=== PATIENT | male | born 1955 | race Hispanic/Latino ===

== ENCOUNTER → 2025-01-26 | Day surgery (SDC) | payer MEDICARE ==
[2025-01-19 11:51] LABS: BASOPHILS % 0.5 % (0.0-1.0); EOSINOPHILS % 3.8 % (0.0-6.0); LYMPHOCYTES % 24.9 % (18.0-39.1); MONOCYTES % 9.9 % (4.4-11.3); NEUTROPHILS % 60.7 % (38.7-80.0); RED CELL DISTRIBUTION WIDTH 13.9 % (11.7-14.4)
[2025-01-19 12:22] LABS: EST GLOMERULAR FILTRATION RATE 93.0 ML/MIN (>=60)
[~2025-01-26] MED LIST: ACETAMINOPHEN 1000 MG/100 ML 100 ML IV ONE; ACETAMINOPHEN 1000 MG/100 ML IV PRN; AMLODIPINE BESY10 MG PO; ASPIRIN 325 MG TAB PO SCH; ATORVASTATIN CA20 MG PO; CELECOXIB 100 MG CAP PO SCH; DIPHENHYDRAMINE HCL INJ 50 MG/ML VIAL IV PRN; DOCUSATE SODIUM 100 MG CAP PO PRN; FENTANYL CITRATE/PF 100MCG/2 ML INJ ONE; HYDRALAZINE HCL50 MG PO; HYDROCHLOROTHIA25 MG PO; HYDROCODONE/APAP 5MG-325MG TAB PO PRN; LEVOTHYROXINE112 MCG PO; LEXAPRO10 MG PO; LIDOCAINE HCL 2% LOCAL INJ 5 ML SDV VIAL INJ ONE; METFORMIN HCL500 MG PO; METOCLOPRAMIDE HCL 10 MG/2ML VIAL ONE; ONDANSETRON HCL INJ 2MG/ML 2ML 2 MG/ML VIAL IV PRN; ONDANSETRON HCL INJ 2MG/ML 2ML 2 MG/ML VIAL ONE; PROPOFOL IV EMULSION 10 MG/ML 20 ML VIAL ONE; ROPIVACAINE 246.25 MG, EPINEPHRINE HCL 1:1000 1ML 0.5 MG, CLONIDINE HCL 0.08 MG, KETORO... INJ ONE; SEMAGLUTID0.25 MG/0. SC; SEVOFLURANE INHAL SOLN 250 ML PEN BTL ONE; SODIUM CHLORIDE 0.9% 1000ML 1,000 ML IV SCH; SODIUM CHLORIDE 0.9% 200 ML ONE; ZESTRIL10 MG PO
[2025-01-26] MEDS: LACTATED RINGER'S 1,000 ML ONE (09:51)
[2025-01-26] MEDS: CELECOXIB 200 MG CAP ONE (09:51)
[2025-01-26] MEDS: DEXAMETHASONE SOD PHOS 10 MG/1 ML VIAL ONE (09:51)
[2025-01-26] MEDS: CEFAZOLIN SODIUM 2 GM ONE (09:52)
[2025-01-26] MEDS: GABAPENTIN 300 MG CAP ONE (09:52)
[2025-01-26 11:32] VITALS: TEMP 97.7
[2025-01-26] MEDS: FENTANYL CITRATE/PF 100MCG/2 ML INJ ONE (11:51)
[2025-01-26] MEDS: HYDROCODONE/APAP 7.5MG-325MG 1 EA TAB PO PRN (12:15)
[2025-01-26 15:15] VITALS: BP 121/61; PULSE 82; RESP 19; O2SAT 96
== END | disposition home or self-care (01) ==
LOC: OR 08:50
PROVIDERS: ATTEND Specialist
DX: M17.12 Unilateral primary osteoarthritis, left knee (principal); M25.762 Osteophyte, left knee; E11.9 Type 2 diabetes mellitus without complications; I25.10 Atherosclerotic heart disease of native coronary artery without angina pectoris; I10 Essential (primary) hypertension; E78.5 Hyperlipidemia, unspecified; E03.9 Hypothyroidism, unspecified; Z01.810 Encounter for preprocedural cardiovascular examination; Z01.812 Encounter for preprocedural laboratory examination; Z01.818 Encounter for other preprocedural examination; Z79.84 Long term (current) use of oral hypoglycemic drugs; Z79.85 Long-term (current) use of injectable non-insulin antidiabetic drugs; Z79.899 Other long term (current) drug therapy; Z98.61 Coronary angioplasty status
CPT/HCPCS: 27447; 36415 ×2; 71046; 73560; 80048; 82948; 85025; 86850; 86900; 93005; 97116; 97161; C1713 ×2; C1776 ×3; J0131; J0169; J1100; J1885; J2003; J2405; J2704; J2765; J2795; J3010; J7050; J7121